=== PATIENT | female | born 1995 | race Caucasian/White ===

== ENCOUNTER 2016-10-11 17:34 | Emergency (ER) | payer OTHER ==
[2016-10-11 17:51] VITALS: BP 123/93; PULSE 97; TEMP 98.5; BMI 22.8
--- NOTE | 2016-10-11 17:57 | PDOC ---
History of Present Illness - General Chief Complaint: Shoulder Dislocation Stated Complaint: INJURY Time Seen by Provider: 10/11/16 17:56 History Source: Patient Exam Limitations: No Limitations - History of Present Illness Initial Comments: 10/11/16 17:57 CHIEF COMPLAINT: Shoulder dislocation HISTORY OF PRESENT ILLNESS: This is a 21 year old female with a history of posterior labral tear s/p shoulder reconstruction approximately 2 years ago who presents for evaluation of left shoulder injury. She was participating in indoor skydiving (balancing with arms extended over a current of air) when she felt her left shoulder displace backwards. EMS was called. She was given 5mg morphine IVP in the ambulance. While attempting to put her arm in a sling, she felt it "pop" back into place. She denies pain or any other complaints. Past History - Past Medical History Allergies/Adverse Reactions: Allergies Allergy/AdvReac Type Severity Reaction Status Date / Time amoxicillin [Amoxicillin] Allergy Intermediate Rash Verified 10/11/16 17:45 Home Medications: Ambulatory Orders Dextroamphetamine/Amphetamine [Adderall 5 mg Tablet] 5 mg PO DAILY 10/11/16 Norethindrone AC-Eth Estradiol [Loestrin 21 1-20 Tablet] 1 each PO HS 10/11/16 Sertraline HCl [Zoloft -] 50 mg PO DAILY 10/11/16 Psychiatric Problems: Yes (add) - Immunization History Immunization Up to Date: Yes - Psycho/Social/Smoking Cessation Hx Anxiety: Yes Suicidal Ideation: No Smoking Status: No Smoking History: Never smoked Have you smoked in the past 12 months: No Number of Cigarettes Smoked Daily: 0 Information on smoking cessation initiated: No Hx Alcohol Use: No Drug/Substance Use Hx: No Substance Use Type: None Review of Systems - Review of Systems Constitutional: No: Chills, Fever Musculoskeletal: Yes: See HPI Neurological: No: Numbness, Paresthesia, Tingling, Weakness *Physical Exam - Vital Signs Last Vital Signs Temp Pulse Resp BP Pulse Ox 98.5 F 97 H 20 123/93 0 L 10/11/16 17:45 10/11/16 17:45 10/11/16 17:45 10/11/16 17:45 10/11/16 17:45 - Physical Exam General Appearance: Yes: Nourished, Appropriately Dressed Comments:: 10/11/16 18:29 Left radial brachial ulnar 2+ Musculoskeletal: positive: Normal Inspection, Decreased Range of Motion (left arm elevation limited secondary to pain) ED Treatment Course - RADIOLOGY Radiology Studies Ordered: Category Date Time Status SHOULDER-LEFT [RAD] Stat Radiology 10/11/16 17:57 Ordered Medical Decision Making - Medical Decision Making 10/11/16 18:24 A/P: 21 year old female with likely shoulder dislocation and apparent reduction. -Xray -Follow up with Dr. Posada, her orthopedist 10/11/16 19:27 Xray wet read: normal study. Sling placed. Informed patient and family that read is preliminary and they are amenable to discharge. Will follow up with orthopedics. Return precautions reviewed. *DC/Admit/Observation/Transfer Diagnosis at time of Disposition: Shoulder joint dislocation Qualifiers: Encounter type: initial encounter Laterality: left Qualified Code(s): S43.005A - Unspecified dislocation of left shoulder joint, initial encounter - Discharge Dispostion Disposition: HOME Condition at time of disposition: Improved Admit: No - Referrals Referrals: Alex Albarran [Primary Care Provider] - Karsten Posada MD [Staff Physician] - - Patient Instructions Printed Discharge Instructions: DI for Shoulder Dislocation Additional Instructions: -Rest and apply ice to the shoulder -Use the sling provided but do stretch gently to avoid "frozen shoulder" -Take ibuprofen as needed for pain -Follow up with Dr. Posada next week -Return for recurrent dislocation, pain/numbness/tingling in the arm, or any other concerning symptoms - Post Discharge Activity Work/School Note: Back to School
== END 2016-10-11 19:43 | disposition home or self-care (01) ==
LOC: JER 17:34 → JERFT 17:34
DX: S43.085A Other dislocation of left shoulder joint, initial encounter (principal); X50.0XXA Overexertion from strenuous movement or load, initial encounter; Y93.79 Activity, other specified sports and athletics; Y92.838 Other recreation area as the place of occurrence of the external cause; Y99.8 Other external cause status
CPT/HCPCS: 73030-TC-LT; 84703; 99281-25

== ENCOUNTER 2023-03-27 06:12 | Day surgery (SDC) | payer OTHER ==
[2023-03-25 12:12] VITALS: BMI 23.8
[2023-03-27] MEDS ORDERED: oxyCODONE HCL 5 MG TABLET PO PRN ×2 (07:08)
[2023-03-27] MEDS ORDERED: LACTATED RINGERS SOLUTION 1,000 ML IV SCH (07:15)
[2023-03-27] MEDS ORDERED: SCOPOLAMINE HYDROBROMIDE 1 PATCH PATCH.TD72 ONE ×2 (07:22→08:02)
[2023-03-27] MEDS ORDERED: BUPIVACAINE LIPOSOME/PF (EXPAREL) 266 MG/20 ML VIAL ONE (07:23)
[2023-03-27] MEDS ORDERED: BUPIVACAINE HCL/PF 0.5% (5MG/ML) 10 ML VIAL ONE (07:23)
[2023-03-27] MEDS ORDERED: MIDAZOLAM HCL 2 MG/2 ML SINGLE DOSE VIAL ONE (07:23)
[2023-03-27] MEDS ORDERED: ACETAMINOPHEN INJECTION 100 ML IVPB ONE (07:23)
[2023-03-27] MEDS ORDERED: ceFAZolin SODIUM 1 GM VIAL ONE ×2 (07:37→08:01)
[2023-03-27] MEDS ORDERED: VANCOMYCIN 1,000 MG VIAL (RESTRICTED TO ID ONLY) ONE ×2 (07:37→08:01)
[2023-03-27] MEDS ORDERED: PROPOFOL 20 ML ONE (07:51)
[2023-03-27] MEDS ORDERED: TRANEXAMIC ACID 1000 MG/10 ML VIAL ONE ×2 (08:02→11:06)
[2023-03-27] MEDS ORDERED: ONDANSETRON 4 MG/2 ML VIAL ONE ×2 (08:05→11:55)
[2023-03-27] MEDS ORDERED: DEXAMETHASONE SOD PHOSPHATE 4 MG/1 ML VIAL ONE (08:05)
[2023-03-27] MEDS ORDERED: KETOROLAC TROMETHAMINE 30 MG/1 ML VIAL ONE (08:05)
[2023-03-27] MEDS ORDERED: ROCURONIUM BROMIDE 50 MG/5 ML SYRINGE ONE (08:52)
[2023-03-27] MEDS ORDERED: SUCCINYLCHOLINE CHLORIDE 200 MG/10 ML SYRINGE ONE (08:52)
[2023-03-27] MEDS ORDERED: SUGAMMADEX SODIUM 200 MG/2 ML VIAL ONE (11:08)
[2023-03-27] MEDS ORDERED: FENTANYL CITRATE/PF 50 MCG/ML VIAL ONE ×2 (11:55→12:16)
[2023-03-27] MEDS: ONDANSETRON 4 MG/2 ML VIAL IVPUSH PRN (12:00)
[2023-03-27] MEDS: oxyCODONE HCL 5 MG TABLET PO ONE (12:45)
[2023-03-27] MEDS ORDERED: oxyCODONE HCL 5 MG TABLET ONE (12:46)
[2023-03-27 12:55] VITALS: RESP 16; TEMP 97.4
[2023-03-27 16:07] VITALS: BP 116/68; PULSE 100
== END 2023-03-27 14:00 | disposition home or self-care (01) ==
LOC: FASU 06:12
PROVIDERS: ATTEND Orthopaedic Surgery
PROC: 0RQK0ZZ Repair Left Shoulder Joint, Open Approach (ICD-10-PCS; principal; 2023-03-27 08:35)
DX: M24.412 Recurrent dislocation, left shoulder (principal); M24.112 Other articular cartilage disorders, left shoulder; S43.302A Subluxation of unspecified parts of left shoulder girdle, initial encounter; M65.812 Other synovitis and tenosynovitis, left shoulder; X58.XXXA Exposure to other specified factors, initial encounter; Y93.9 Activity, unspecified; Y92.9 Unspecified place or not applicable
CPT/HCPCS: 23460; C1713; 73030-TC-LT-FY; 81025; 88300-TC; 94760; C1889; J0131